=== PATIENT | female | born 1975 | race Caucasian/White ===

== ENCOUNTER → 2018-11-13 09:42 | Outpatient (CLI) | payer OTHER, SELFPAY ==
--- NOTE | 2018-11-13 09:54 | RAD_ITS ---
STUDY: X-RAY - PELVIS REASON FOR EXAM: Female, 42 years old. Inflammatory polyarthropathy TECHNIQUE: One view of the pelvis was obtained. COMPARISON: None. FINDINGS: There is a non-specific bowel gas pattern. Normal visualized soft tissue structures. Normal bilateral iliac wings, sacroiliac joints and visualized sacrum. Normal visualized bilateral superior and inferior pubic rami. Normal pubic symphysis. Normal ischial tuberosities. Normal visualized right femoral head. Normal right acetabulum. Normal right hip joint. Normal visualized left femoral head. Normal left acetabulum. Normal left hip joint. RAD/Pelvis 1 or 2 Views IMPRESSION: Normal x-ray examination of the pelvis. Electronically Signed: Reji Cartagena DO at 17:03 EDT Tel , Service support ,
[2018-11-13 12:46] LABS: ALB/GLOB Ratio 1.4 RATIO (0.9-2.4); AST(SGOT) 22 U/L (15-37); Alanine Aminotransfer ALT/SGPT 33 U/L (13-56); Albumin, Serum 4.1 g/dL (3.2-5.0); Alkaline Phosphatase 54 U/L (45-117); Anion Gap 7 (5-15); BUN 25 mg/dL (7-18); BUN/Creat Ratio 19.4 RATIO (10-20); CRP < 2.90 mg/L (0.0-3.0); Calcium,Total 8.3 mg/dL (8.5-10.1); Chloride 108 mmol/L (98-107); Creatinine, Serum 1.29 mg/dL (0.55-1.02); EST Glomerular Filtration Rate 48 mL/min (>60); Erythrocyte Sedimentation Rate < 1 mm/hr (0-20); Est Glom Filt Rate - Afr Amer 58 mL/min (>60); Glucose 84 mg/dL (74-106); Potassium 4.1 mmol/L (3.5-5.1); Protein, Total 7.1 g/dL (6.4-8.2); Sodium Level 142 mmol/L (136-145)
[2018-11-13 12:47] LABS: Absolute Lymphocyte Count 1.31 X10^3/ul (0.83-4.51); Basophil# 0.01 X10^3/uL; Basophil% 0.3 % (0-1); Eosinophil# 0.06 X10^3/uL; Eosinophils% 1.7 % (0-5); Hematocrit 43.2 % (37-47); Hemoglobin 13.8 g/dl (12.0-15.0); Lymphocyte # 1.31 X10^3/ul (4.0); Lymphocyte % 36.1 % (19-41); Mean Corp Hgb Conc 31.9 g/gl (32-36); Mean Corpuscular Hgb 31.2 pg (27.0-32.0); Mean Corpuscular Volume 97.5 fL (81-99); Mean Platelet Vol. 10.7 fl (6.2-12.0); Monocyte# 0.23 X10^3/uL; Monocyte% 6.3 % (0-10); Neutrophil # 2.02 X10^3/uL (2.7-7.7); Neutrophil % 55.6 % (47-70); Platelet Count 246 K/mm3 (150-450); RBC Distribution Width SD 45.1 fl (35.1-43.9); Red Blood Count 4.43 M/mm3 (4.2-5.4); White Blood Count 3.6 K/mm3 (4.4-11.0)
[2018-11-13 12:53] LABS: POSITIVE COUNT NO; POSITIVE DIFFERENTIAL NO; POSITIVE MORPHOLOGY NO
[2018-11-14 14:54] LABS: ANTINUCLEAR ANTIBODIES DIRECT Negative (Negative)
[2018-11-22 11:56] LABS: CCP IgG Antibodies 7 units (0-19); HEPATITIS B SURFACE AG Negative (Negative); HLA B27 Negative (.); Hep B Surface Antibodies Reactive (.); Hep C Antibodies 0.1 s/co ratio (0.0-0.9)
== END ==
PROVIDERS: Referring Provider Internal Medicine Rheumatology; Visit Provider Internal Medicine Rheumatology
DX: M06.4 Inflammatory polyarthropathy (principal); F32.89 Other specified depressive episodes; J30.9 Allergic rhinitis, unspecified
CPT/HCPCS: 36415; 72170; 80053; 81374; 85025; 85652; 86038; 86140; 86200; 86431; 86706; 86803; 87340

== ENCOUNTER → 2019-03-07 | Outpatient (CLI) | payer OTHER, SELFPAY ==
--- NOTE | 2019-03-07 16:29 | RAD_ITS ---
STUDY: X-RAY CHEST REASON FOR EXAM: Female, 43 years old. RA TECHNIQUE: Frontal view of the chest COMPARISON: None. FINDINGS: The lungs are clear. There are no pleural effusions. There is no pneumothorax. The heart is normal in size. The visualized osseous structures are within normal limits. RAD/Chest PA and Lateral IMPRESSION: No acute thoracic pathology. Electronically Signed: Jerry Stevens, at 17:05 EDT Tel , Service support ,
[2019-03-10 08:13] LABS: QNTFERON TB Mitogen Value > 10.00 IU/mL (.); QNTFERON TB Nil Value 0.04 IU/mL (.); QNTFERON TB1+ Ag Value 0.03 IU/mL (.); QNTFERON TB2+ Ag Value 0.04 IU/mL (.)
[2019-03-11 14:01] LABS: QNTIFERON TB Positive Criteria Negative (Negative)
== END | disposition home or self-care (01) ==
LOC: MTLAB 16:27
PROVIDERS: Referring Provider Internal Medicine Rheumatology; Visit Provider Internal Medicine Rheumatology
DX: M05.79 Rheumatoid arthritis with rheumatoid factor of multiple sites without organ or systems involvement (principal); F32.89 Other specified depressive episodes; J30.9 Allergic rhinitis, unspecified
CPT/HCPCS: 36415; 71046; 86480

== ENCOUNTER 2024-04-06 08:05 | Day surgery (SDC) | payer OTHER, SELFPAY ==
[2024-04-06] VITALS (7 sets, daily range): BP systolic 115–126; BP diastolic 9–81; PULSE 65–77; RESP 14–16; TEMP 36.2–36.7; O2SAT 96–100; BMI 26.4
--- NOTE | 2024-04-06 08:26 | PRE.ANES_ITS ---
ASA Classification* ASA Classification ASA Classification: 2 Assessment & Plan Anesthesia* Anesthesia Assessment Anesthesia Assessment: Discussed sedation and/or anesthesia options, risks, benefits, and alternatives with patient/parents/legal guardian/POA. Questions invited. The patient/parents/legal guardian/POA seems to understand and agrees to proceed with anesthesia plan. Reviewed the physical assessment, medical history, allergy history and patient home medications list prior to surgery/procedure/anesthetic and documented any changes. Performed airway and anesthesia risk assessments. Anesthesia Type Anesthesia Type: General (see written pre anesthesia record for full assessment) Anesthesia Focused Assessment* Airway Assessment Mouth opens: >3 cm Mallampati Score: II Focused Labs Anesthesia Preop lab: CBC WBC 3.6 K/mm3 (4.4-11.0) L 11/13/18 09:58 RBC 4.43 M/mm3 (4.2-5.4) 11/13/18 09:58 Hgb 13.8 g/dl (12.0-15.0) 11/13/18 09:58 Hct 43.2 % (37-47) 11/13/18 09:58 Plt Count 246 K/mm3 (150-450) 11/13/18 09:58 CHEMISTRY Potassium 4.1 mmol/L (3.5-5.1) 11/13/18 09:58 Sodium 142 mmol/L (136-145) 11/13/18 09:58 BUN 25 mg/dL (7-18) H 11/13/18 09:58 Creatinine 1.29 mg/dL (0.55-1.02) H 11/13/18 09:58 Glucose 84 mg/dL (74-106) 11/13/18 09:58 COAG Urine Test Pending 04/06/24 08:15 Pre-Assessment Diagnosis/Proposed Procedure Planned Operative Procedure(s): (L) Capsulotomy of the left first metatarsal phalangeal joint, proximal proximal interphalangeal joint arthroplasty of the second, fourth and fifth digits, hardware removal of fourth digit and adjacent tissue rearrangement of the second digit Anesthesia History 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 When Was Last Pacemaker Check QUESTION #4 FULL TEXT: You/Your Family Experience fever (hyperthermia) with Anesthesia Last Oral Intake Last Oral intake: Last Oral Intake NPO since Meds taken in AM with sips of water? Meds patient instructed to take am of surgery PONV PONV - foreman or supervisor and operator: PONV - foreman or supervisor and operator Female Yes 03/20/24 10:20 HX of Motion Sickness Yes 03/20/24 10:20 HX of N/V After Surgery No 03/20/24 10:20 Non-Smoker Yes 03/20/24 10:20 Duration of Surgery greater Yes 03/20/24 10:20 than 60 minutes Number of Risk Factors 4 03/20/24 10:20 PONV Score Severe Risk 03/20/24 10:20 Respiratory Assessment Respiratory Assessment - foreman or supervisor and operator: Respiratory Tract Infection Hx - foreman or supervisor and operator Hx Respiratory Tract Infection No 03/20/24 10:20 STOP Sleep Apnea STOP Sleep Apnea - foreman or supervisor and operator: STOP Sleep Apnea - foreman or supervisor and operator Hx Hypertension No 03/20/24 10:20 Hx Sleep Apnea No 03/20/24 10:20 CPAP BIPAP Do you snore loudly (louder No 03/20/24 10:20 than talking or can be heard Do you often feel tired/ No 03/20/24 10:20 fatigued/ sleepy during daytime? Has anyone observed you stop No 03/20/24 10:20 breathing during sleep? STOP Results Negative 03/20/24 10:20 QUESTION #5 FULL TEXT : Do you snore loudly (louder than talking or can be heard through closed doors)? 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 Specify any problems Hx of Preganancy in last 3 N/A 03/20/24 10:20 Months Nurse Filling Out Transfusion NBUCHER 03/20/24 10:20 & Questions: Date: 03/20/24 03/20/24 10:20 Time: 10:03/20/24 10:20 Patient unable to answer at this time (ie. confused, unrespo /Reproduction History /Reproductive History - foreman or supervisor and operator: /Reproductive Hx- foreman or supervisor and operator Hx Now No 03/20/24 10:20 Gestational Age (in weeks): EDC: Hx Hx Para Hx Section SAB No 03/20/24 10:20 Active Medications Active Medications: Current Medications Generic Name Dose Route Start Last Admin Trade Name Freq PRN Reason Stop Dose Admin Acetaminophen 1,000 mg 04/06/24 12:00 Acetaminophen 500 Mg Tablet PO 04/06/24 12:01 X1 ONE Gabapentin 600 mg 04/06/24 12:00 Gabapentin 600 Mg Tablet PO 04/06/24 12:01 X1 ONE Cefazolin Sodium 2 gm/ Sodium 110 mls @ 150 mls/hr 04/06/24 12:00 Chloride IV 04/06/24 12:43 PREOP ONE Lactated Ringer's 1,000 mls @ 15 mls/hr 04/06/24 08:15 IV .Q48H JUDE Insulin Human Lispro 1 - 6 unit 04/06/24 12:00 Insulin Lispro 100 Unit/Ml Insuln.Pen SC Q4H PRN PRN BG>/= 180, SEE PROTOCOL Protocol PFSH Medical History Wears glasses Cancer Depression Anxiety Arthritis Non-smoker Home Medications ?Medication ?Instructions ?Recorded ?Last Taken ?Type bupropion HCl 300 mg 24 hr tablet, 300 mg PO DAILY 03/20/24 04/06/24 History extended release buspirone 10 mg tablet 10 mg PO DAILY 03/20/24 04/06/24 History cetirizine 10 mg tablet (24Hour 10 mg PO QHS 03/20/24 04/05/24 History Allergy) drospirenone 3 mg-ethinyl 1 tab PO DAILY 03/20/24 04/05/24 History estradiol 0.02 mg tablet (Loryna (28)) duloxetine 60 mg capsule,delayed 60 mg PO QHS 03/20/24 04/05/24 History release gabapentin 400 mg capsule 400 mg PO TID 03/20/24 04/05/24 History lisdexamfetamine 50 mg capsule 50 mg PO DAILY 03/20/24 04/06/24 History meloxicam 15 mg tablet 15 mg PO DAILY 03/20/24 04/05/24 History trazodone 100 mg tablet 100 mg PO QHS 03/20/24 04/05/24 History Allergy/AdvReac Type Severity Reaction Status Date / Time No Known Allergies Allergy Verified 04/06/24 08:21 Surgical History History of (~1995) History of arthroscopic knee surgery History of foot surgery History of back surgery (~07/2023) Social History Smoking Status: Never smoker Review of Systems (Anesthesia) ROS Narrative System reviewed and no additional complaints, except as documented.
[2024-04-06 08:35] LABS: Internal QC Validated? YES +Cl - CLEAR BKGD; Pregnancy, Urine Negative Negative
[2024-04-06] MEDS: Gabapentin 600 MG Tablet PO (08:37)
[2024-04-06] MEDS: Lactated Ringers 1,000 ML 15 ML IV (08:37)
[2024-04-06] MEDS: Acetaminophen 500 MG Tablet 1000 MG PO (08:37)
[2024-04-06 09:12] LABS: Magnesium 2.3 mg/dL (1.6-2.6)
[2024-04-06] MEDS: Magnesium 1 GM over 15 mins IV (09:23)
--- NOTE | 2024-04-06 09:57 | RAD_ITS ---
STUDY: X-RAY LEFT FOOT, SECOND TOE REASON FOR EXAM: Female, 48 years old. Intraoperative digital documentation image. TECHNIQUE: A single frontal intraoperative digital documentation view of the distal metatarsals and phalanges of the foot. COMPARISON: None. FINDINGS: Single view shows metallic anchor in the head of the second metatarsal. Postsurgical changes of the phalanges are noted. 150 total images acquired. One image saved. Total exposure time 2.52 seconds. Longest single exposure 5 seconds. Total DAP 18.9159 cGy/cm2. Total air kerma 1.1259 mGy. RAD/Toe(s) Min 2 Views IMPRESSION: Intraoperative digital documentation views. Electronically Signed: Salas Bhardwaj MD at 9:57 EDT ,
[2024-04-06] MEDS: Cefazolin 2 GM in 0.9% Normal Saline (100mL Bag) 100 ML IV (10:01)
[2024-04-06 10:36] LABS: Vitamin D,25 Hydroxy 65.4 ng/mL
[2024-04-06] MEDS: Bupivacaine 0.5% PF 10 ML VIAL (11:37)
--- NOTE | 2024-04-06 11:56 | PCM.OPRPT ---
Problems Associated Problem List Diagnoses (1) Displacement of internal fixation device of bones of foot and toes, initial encounter: (2) Other hammer toe(s) (acquired), left foot: (3) Primary osteoarthritis, left ankle and foot: (4) Pain in left foot: (5) Hallux valgus (acquired), left foot: (6) Contracture, left foot: Report of Operation Date of Procedure: 04/06/24 Pre-Operative Diagnosis: 1. Displacement of internal fixation device, left foot 2. Hammertoes, left foot 3. Osteoarthritis, left foot 4. Pain, left foot 5. Contracture, left foot Post-Operative Diagnosis: Same as preoperative diagnosis Surgery/Procedure Performed:: 1. Hardware removal, fourth digit, left foot 2. PIPJ de-rotational arthroplasty, fifth digit, left foot 3. PIPJ arthroplasty, fourth digit, left foot 4. PIPJ arthroplasty, second digit, left foot 5. Adjacent tissue rearrangement, second digit, left foot 6. First metatarsophalangeal joint capsulotomy, left foot Description of Surgical Findings:: 1. Evidence of painful retained hardware of metallosis to the fourth digit. Hardware had to be removed from the dorsal DIPJ secondary to the screw not being able to back out. 2. Successful soft tissue rearrangement to the dorsal aspect of the second digit to allow the second toe to be in a more rectus straight position. 3. Successful capsulotomy at the medial aspect of the first metatarsophalangeal joint allowing for a decrease in MESSINA angle as viewed on exam fluoroscopy as well as clinically. Surgeon: Dameon Chester superintendent meters: Kaleb Rodriguez Type of Anesthesia: Block,Regional, General and Local Anesthesiologist: Freddy Hackett Special Medications: Per anesthesia Specimen's removed: 1. Painful retained hardware, fourth digit, left foot Drains: None Estimated Blood Loss (mL): 30 mL Fluids Replaced: For anesthesia Description of Procedure: Indications For Operation: Mrs. Torres is a 48-year-old female who was admitted to [facility] for elective left foot hammertoe revisional surgery. Patient was seen by a doctor at outside facility down in [place] where she had arthrodesis of digits 2 through 4 to left lower extremity. Since then she has been having pain to the left foot. Patient was referred by a friend to my office for surgical evaluation. I recommended to the patient to have minimally invasive corrective surgery with arthroplasties due to her rigid fixation. The patient did have hardware evacuation of the third digit and is having pain to the fourth digit due to hardware fixation at this time. Long discussion with the patient with many in office consultations as well as a surgical consultation where we agreed to move forward with the above procedure. All risk and benefits were discussed with the patient in great detail. Chart review and consent was signed. Due to patient's continued pain and concern for rejection of metal hardware in the fourth digit it has been deemed necessary at this time to take the patient to the operating room to perform the above procedure to help correct her deformity and relieve her constant pain. The nature of the problem, anticipated procedures, postop recovery/convalences and risk/complications include but not limited to infection, wound healing complications, digital amputation, hypertrophic scarring, numbness, tingling, chronic pain, CRPS, over and under correction, recurrence of deformity, DVT and or PE and the need for further surgery have been discussed in great detail with the patient. All questions have been answered to the patient's satisfaction. There are no guarantees given as to the outcome of the procedure. Description of Procedure: Under mild sedation, the patient was brought into the operating room and placed on the operating table in supine position. Once the patient was under general anesthesia with laryngeal mask airway, the left lower extremity was blocked using approximately 10 cc0.5% Marcaine plain to the left saphenous nerve, anesthesia will be providing a popliteal block please see procedure note for further detail. Next, a well-padded thigh tourniquet was applied to the left lower extremity. Next, the left lower extremity was prepped and draped in normal aseptic manner. Next, a timeout was then undertaken verifying the correct patient, extremity, visibility of preoperative markings, availability of the equipment. Next, attention was directed to the left lower extremity. Using a 6 inch Esmarch, left lower extremity was exsanguinated and elevated to 60 degrees for 1 minute. 1. Hardware removal, fourth digit, left foot Next, attention was directed to the fourth digit. Using mini C arm fluoroscopy a small K wire was advanced through the partially-threaded screw cannulated section. Attempt to backed the screw out retrograde fashion was not successful due to the lack of bite at the proximal end. Next, a small stab incision was made at the level of the DIPJ dorsally. The screw was advanced proximally and then backed out dorsally through the DIPJ. The incision was flushed with copious normal saline. C-arm fluoroscopy confirmed that this screw was completely gone. 2. PIPJ arthroplasty, fourth digit, left foot Next at the level of the PIPJ fourth digit and a small stab incision was made laterally, using [place] minimally invasive bur, a PIPJ arthroplasty was carried out with water irrigation. Removal of the joint was confirmed with range of motion as well as on mini C-arm fluoroscopy. The incision was flushed with complements normal saline. 3. PIPJ de-rotational arthroplasty, fifth digit, left foot Next, attention was directed to the fifth digit. An elliptical incision was made from proximal lateral to distal medial using a #15 blade. The excess skin was lifted off and carefully dissected using a pickup and #15 blade. The joint was identified and burred out at the level of the PIPJ using the Bassem minimally invasive bur. The removal of the joint was confirmed on mini C arm fluoroscopy. The incision was flushed with copious months normal saline. Next, using 3-0 nylon derotational arthroplasty was closed using 3-0 nylon in simple interrupted suture technique. 4. First metatarsophalangeal joint capsulotomy, left foot Next, attention was directed to the dorsal aspect of the first metatarsophalangeal joint. There showed evidence of mild HAV deformity that was abutting against the second toe after the initial outpatient surgery. Incision was marked medial to the extensor hallucis longus of the left foot. Using a #15 blade, a full-thickness vision down to simultaneous tissue was performed without incident. Gentle retraction with double prong skin hook, followed by blunt dissection to the level of the capsule. A capsulorrhaphy was carried out dorsally as well as in a T-type incision to expose the joint. There showed evidence of excess capsule medially which was able to be resected. A large 4 x 4 was folded and used as a spacer in the first webspace. The medial capsule was reapproximated and sutured together using 2-0 Ethibond and over over suture technique. A folded 4 x 4 was removed and the toe was in a more rectus fashion away from the second digit. The incision was flushed with copious normal saline. The capsule was reapproximated and closed using 3-0 Monocryl in running locking suture technique. 5. PIPJ arthroplasty, second digit, left foot Next at the level of the PIPJ second digit and a small stab incision was made laterally, using Bassem minimally invasive bur, a PIPJ arthroplasty was carried out with water irrigation. Removal of the joint was confirmed with range of motion as well as on mini C-arm fluoroscopy. The incision was flushed with complements normal saline. 6. Adjacent tissue rearrangement, second digit, left foot Next, attention was directed to the dorsal aspect of the PIPJ second digit. Using a separate incision, rearrangement of soft tissue was performed in a wedge style incision. Care was taken to not violate the long extensor. The incision was flushed with copious normal saline. The skin was reapproximated and closed with 3-0 nylon in simple interrupted suture to the medial part of the incision and the remaining incision was closed with 4-0 nylon simple interrupted suture technique. Once the soft tissue/skin was closed the toe was more in a rectus position. Next, all remaining open incisions on the left foot were all flushed with copious carisa of normal saline. All remaining incisions were reapproximated and closed at the level of the skin using 4-0 nylon in simple interrupted suture technique. The left foot was wiped clean and patted dry. All incisions were dressed with Betadine soaked Adaptic followed by interdigital Flaca for compression, dry sterile dressing and a double layer AO splint at 90 degrees was placed in left lower extremity. The patient tolerated the procedure and anesthesia well and apparent satisfactory condition and was transported to the PACU for further monitoring prior to discharge home. Vital signs stable and vascular status intact to all digits bilateral. Post Operative Plan: Weightbearing: No weightbearing to left lower extremity with assistance of crutches. Full weightbearing right foot Antibiotics: 2 g Ancef through the IV DVT Prophylaxis: 81 mg aspirin Sarah: None Dressing: Betadine soaked Adaptic, dry sterile dressing, double layer Fuentes AO splint at 90 degree X-Rays: Post-operative films taken on the operating room. Pain Medication: Percocet 5/325, Flexeril 10 mg Follow-up: Patient will follow-up with Dr. Chester in private office 1 week to 10 days after surgery. Patient is to call the on-call doctor with any questions or concerns. Grafts/Implants Used: None Complications None Admit VTE Documentation VTE Present on Admission: No VTE Mechan Device Prophylaxis: SCD's VTE Pharm Prophylaxis ordered?: Yes
--- NOTE | 2024-04-06 12:38 | PCM.POST.ANE ---
Anesthesia: Postop Eval I Current Vital Signs Temperature: 97.1 F Pulse Rate: 67 Blood Pressure: 120/81 Respiratory Rate: 14 Pulse Ox: 96 Oxygen Delivery Method: Room Air Assessment Airway patent: Yes Spontaneous unlabored respirations: Yes Mental status: Awake and Calm nausea: No Vomiting: No Anesthesia Complication: No Fluid Hydration Crystalloid volume administer (ml): 1,000 Total IV fluid infused: 1,000 Progress Note Anesthesia document: Postop Eval 1 completed: Yes
== END 2024-04-06 13:20 | disposition home or self-care (01) ==
LOC: SDC 08:08 → AC 08:09
PROVIDERS: Anesthesiology; Referring Provider Podiatrist Foot & Ankle Surgery; Visit Provider Podiatrist Foot & Ankle Surgery
PROC: (CPT 20680; principal; 2024-04-06 09:15)
DX: M19.072 Primary osteoarthritis, left ankle and foot (principal); Z79.891 Long term (current) use of opiate analgesic; M20.40 Other hammer toe(s) (acquired), unspecified foot; M24.575 Contracture, left foot; F41.9 Anxiety disorder, unspecified; F32.A Depression, unspecified; Z98.890 Other specified postprocedural states
CPT/HCPCS: 20680; 28285 ×3; 64450; 01480; 28270; 73660; 76000; 81025; 82306; 83735; J7120; J2405; J3475